=== PATIENT | male | born 1960 | race Caucasian/White ===

== ENCOUNTER 2018-01-03 11:00 | Outpatient (CLI) | payer OTHER ==
[~2018-01-03] VITALS: Ht 175.3 cm; Wt 73.5 kg
[~2018-01-03 11:00] MED LIST: BENZ-13 PO; CEPH500C PO; CYCL10TA9 PO; OMEP20TA33 PO; RT-ALBUINH IH; TRAM50TA2 PO
== END 2018-01-03 12:30 ==
LOC: PREOP 11:00
PROVIDERS: ATTEND Surgery
DX: Z01.818 Encounter for other preprocedural examination (principal); Z12.11 Encounter for screening for malignant neoplasm of colon

== ENCOUNTER 2018-01-09 06:55 | Day surgery (SDC) | payer OTHER ==
[~2018-01-09] VITALS: Ht 175.3 cm; Wt 73.5 kg
[2018-01-09] MEDS ORDERED: LACTATED RINGERS 1,000 ML IV STA (07:12)
[2018-01-09] MEDS ORDERED: LACTATED RINGERS 1,000 ML IV ONE (07:14)
[2018-01-09] MEDS ORDERED: PROPOFOL INJECTION 50 ML IV ONE (07:20)
[2018-01-09] MEDS ORDERED: MIDAZOLAM 2 MG/2 ML (VERSED) VIAL ONE (07:21)
[2018-01-09 07:24] VITALS: BP 131/83
--- NOTE | 2018-01-09 08:22 | Progress Note-Pre Operative ---
Pre-Operative Progress Note H&P Reviewed The H&P was reviewed, patient examined and no changes noted. Date Seen by Provider: Jan 09, 2018 Time Seen by Provider: 08:21 Date H&P Reviewed: Jan 09, 2018 Time H&P Reviewed: 08:21 Pre-Operative Diagnosis: gerd, screening colon SAMMI JACOBSEN DO Jan 09, 2018 08:22
[2018-01-09] MEDS ORDERED: proPOfol 200 MG/20 ML (DIPRIVAN) VIAL IV ONE (09:14)
[2018-01-09 09:40] VITALS: BP 140/90
[2018-01-09 10:15] VITALS: BP 126/86
--- NOTE | 2018-01-09 10:31 | Discharge Inst-Simple/Standard ---
Discharge Inst-Standard Patient Instructions/Follow Up Plan of Care/Instructions/FU: 2 weeks Jasmeet Activity as Tolerated: Yes Discharge Diet: Regular Diet SAMMI JACOBSEN DO Jan 09, 2018 10:31
--- NOTE | 2018-01-09 10:38 | Progress Note-Post Operative ---
Post-Operative Progess Note Surgeon (s)/Technical Coordinator (s) Surgeon SAMMI JACOBSEN DO Technical Coordinator: na Pre-Operative Diagnosis gerd, screening colon Post-Operative Diagnosis hiatal hernia, colon polyps, poor prep Procedure & Operative Findings Date of Procedure 01/09/18 Procedure Performed/Findings egd c biopsies and flex sig c hot bx polypectomy x 3 and snare polypectomy x 2 with king inking 2 locations Anesthesia Type per men's and boys' clothing salesperson Estimated Blood Loss Estimated blood loss (mL): none Specimens/Packing Specimens Removed antrum, ge junction, colon polyps SAMMI JACOBSEN DO Jan 09, 2018 10:38
[2018-01-09 10:42] VITALS: BP 126/86
--- NOTE | 2018-01-09 14:57 | OPERATIVE REPORT ---
DATE OF SERVICE: 01/09/2018 PREOPERATIVE DIAGNOSES: Gastroesophageal reflux disease, screening colonoscopy. POSTOPERATIVE DIAGNOSES: Hiatal hernia, colon polyps, poor prep. PROCEDURE: EGD with biopsies and flexible sigmoidoscopy with hot biopsy polypectomy x3 and snare polypectomy x2 with Natasha inking x2 locations. SURGEON: Sammi Alamo DO. ANESTHESIA: Per APPLIED PSYCHOLOGY CHAIR. ESTIMATED BLOOD LOSS: None. COMPLICATIONS: None. SPECIMEN: The antrum, GE junction, colon polyps. INDICATIONS: The patient is a 57-year-old male due for screening colonoscopy. He has some reflux as well. He understands risks and benefits of procedure and wished to proceed with procedure. Consent was signed on chart. DESCRIPTION OF PROCEDURE: The patient was taken to the endoscopy suite, placed in left lateral recumbent position. Timeout was performed. Scope was inserted in mouth, down into esophagus, stomach and into the duodenum without difficulty. There were no polyps, mass or ulcerations within the duodenum. The scope was slowly retracted back into the stomach, which was further insufflated. No polyps, masses or ulcerations. No significant erythematous changes. Biopsy of the antrum was obtained. The scope was retroflexed noting a small hiatal hernia. Scope was then returned to its normal position, slowly withdrawn back to the GE junction with some minimal erythematous changes. Biopsy of the GE junction was obtained. Scope was then slowly retracted back until completely removed, noting no other pathology. Digital rectal exam was performed. There were no palpable polyps, mass or ulcerations. The scope was inserted in the rectum through the rectum and into the sigmoid colon. After the sigmoid colon, there was a lot of soft stool that was attempted to be irrigated and suctioned without any success. At this point, it was decided to do full colonoscopy at this time. Scope was then slowly retracted back. There was a polyp in the sigmoid colon, which hot biopsy polypectomy was performed. The scope was continued to be slowly retracted back. There was just slightly larger than a cm polyp which snare polypectomy is performed. This area was also inked for examination later with 2 mL of Natasha ink. The polyp was unable to be suctioned and taken, therefore had to be withdrawn. The scope had to be reinserted upto that area. The scope was being slowly retracted. In the rectum there was another large greater than 1 cm polyp. Snare polypectomy is performed. This was inked as well with . As scope was also coming back into the rectum, there are two other small polyps which were present in the rectum where hot biopsy polypectomy was performed. No other pathology was noted. Scope was retroflexed noting no other pathology. Scope was returned to its normal position, slowly withdrawn until completely removed. The patient tolerated the procedure well without any complications and was taken to recovery in stable condition. RECOMMENDATIONS: The patient will follow up in the office in 2 weeks to discuss pathology results. The patient will need to be on two day prep and we will likely repeat about six weeks. Job ID: [id number] DocumentID: [id number] Dictated Date: 01/09/2018 10:38:13 Crimper Assembler Date: 01/09/2018 14:57:07 Dictated By: SAMMI ALAMO DO
== END 2018-01-09 10:43 | disposition home or self-care (01) ==
LOC: ENDO 06:55
PROVIDERS: ATTEND Surgery
DX: Z12.11 Encounter for screening for malignant neoplasm of colon (principal); D12.5 Benign neoplasm of sigmoid colon; D12.8 Benign neoplasm of rectum; K63.5 Polyp of colon; K21.9 Gastro-esophageal reflux disease without esophagitis; K44.9 Diaphragmatic hernia without obstruction or gangrene; F17.210 Nicotine dependence, cigarettes, uncomplicated

== ENCOUNTER 2018-02-21 15:00 | Outpatient (CLI) | payer OTHER ==
[~2018-02-21] VITALS: Ht 175.3 cm; Wt 73.5 kg
== END 2018-02-21 15:20 ==
LOC: PREOP 15:00
PROVIDERS: ATTEND Surgery
DX: Z01.818 Encounter for other preprocedural examination (principal)